=== PATIENT | male | born 1985 | race Caucasian/White ===

== ENCOUNTER 2018-08-27 13:23 | Emergency (ER) | payer OTHER ==
[2018-08-27 13:44] VITALS: BP 160/84
[2018-08-27 13:51] LABS: BASO % 0 % (0-3); EOS # 0.3 x10^3/uL (0.0-0.7); EOS % 7 % (0-3); HEMATOCRIT 44.8 % (39.0-53.0); HEMOGLOBIN 15.3 g/dL (13.0-17.5); LYMPH # 1.2 x10^3/uL (1.0-4.8); LYMPH % 25 % (24-48); MEAN CORPUSCULAR HEMOGLOBIN 30 pg (25-35); MEAN CORPUSCULAR HGB CONC 34 g/dL (31-37); MEAN CORPUSCULAR VOLUME 88 fL (79-100); MONO # 0.5 x10^3/uL (0.0-1.1); MONO % 10 % (0-9); NEUT # 2.9 x10^3uL (1.8-7.7); NEUT % 58 % (31-73); PLATELET COUNT 319 x10^3/uL (140-400); RED BLOOD COUNT 5.08 x10^6/uL (4.30-5.70); RED CELL DISTRIBUTION WIDTH 13.1 % (11.5-14.5)
[2018-08-27 14:11] LABS: ALBUMIN 4.4 g/dL (3.4-5.0); ALBUMIN/GLOBULIN RATIO 1.2 (1.0-1.7); CALCIUM 9.9 mg/dL (8.5-10.1); GFR 87.2; MAGNESIUM 2.1 mg/dL (1.8-2.4); POTASSIUM 4.2 mmol/L (3.5-5.1); TOTAL BILIRUBIN 0.5 mg/dL (0.2-1.0); TOTAL PROTEIN 8.2 g/dL (6.4-8.2)
--- NOTE | 2018-08-27 14:15 | PHYS DOC ---
Past History Past Medical History: No Pertinent History Past Surgical History: No Surgical History Alcohol Use: None Drug Use: None Adult General Chief Complaint Chief Complaint: CHEST PAIN [facility] HPI Patient is a 33 year old male who presents with complaining of chest pain. She complaining of constant left-sided chest aching pain in addition to his shoulder that getting worse with movement and activity and rated his pain 5-7/10. Patient complaining of mild shortness of breath without nausea, dizziness, focal neuro deficit, palpation, fever and chills. Patient states he had the same pain previously that last for one or 2 hours and today last more than 6 hours. Patient stated he does physical activity on daily basis and denies injury and increasing of physical activity. Review of Systems Review of Systems Constitutional: Denies fever or chills [] Eyes: Denies change in visual acuity, redness, or eye pain [] HENT: Denies nasal congestion or sore throat [] Respiratory: Denies cough, reports shortness of breath [] Cardiovascular: No additional information not addressed in HPI [] GI: Denies abdominal pain, nausea, vomiting, bloody stools or diarrhea [] : Denies dysuria or hematuria [] Musculoskeletal: Denies back pain or joint pain [] Integument: Denies rash or skin lesions [] Neurologic: Denies headache, focal weakness or sensory changes [] Endocrine: Denies polyuria or polydipsia [] All other systems were reviewed and found to be within normal limits, except as documented in this note. Allergies Allergies Allergies Coded Allergies Type Severity Reaction Last Updated Verified No Known Drug Allergies 08/27/18 No Physical Exam Physical Exam Constitutional: Well developed, well nourished, mild distress, non-toxic appearance. [] HENT: Normocephalic, atraumatic. [] Eyes: PERRLA, EOMI, conjunctiva normal, no discharge. [] Neck: Normal range of motion, no tenderness, supple, no stridor. [] Cardiovascular:Heart rate regular rhythm, no murmur [] Lungs & Thorax: Bilateral breath sounds clear to auscultation [] Abdomen: Bowel sounds normal, soft, no tenderness, no masses, no pulsatile masses. [] Skin: Warm, dry, no erythema, no rash. [] Back: No tenderness, no CVA tenderness. [] Extremities: No tenderness, no cyanosis, no clubbing, ROM intact, no edema. [] Neurologic: Alert and oriented X 3, normal motor function, normal sensory function, no focal deficits noted. [] Psychologic: Affect normal, judgement normal, mood normal. [] Current Patient Data Vital Signs Vital Signs Date Time Temp Pulse Resp B/P (MAP) Pulse Ox O2 Delivery O2 Flow Rate FiO2 08/27/18 13:44 67 18 98 Room Air EKG EKG EKG interpreted by me. EKG at 1331 showed normal sinus rhythm at rate of 63, no rmal when necessary QT intervals, no acute ST and T-wave abnormalities. Radiology/Procedures Radiology/Procedures [address] [address] IMAGING REPORT Signed PATIENT: NEHEMIAH SALDIVAR ACCOUNT: [id number] : 1985 LOCATION: ER AGE: 33 SEX: M EXAM STATUS: REG ER ORD. PHYSICIAN: ALINA MARINO MD REASON: chest pain PROCEDURE: CHEST PA & LATERAL CHEST PA LATERAL History: Chest pain. Comparison: None. Findings: The bilateral dann are prominent. The right paratracheal stripe is upper limits of normal. The cardiac size is normal. The lungs are clear. No pleural effusion or pneumothorax is seen. There is no acute bone abnormality. IMPRESSION: 1. Bilateral dann are prominent. Appearance may be due to vascular structures, but cannot exclude adenopathy. 2. The lungs are clear. Electronically signed by: Emmanuel Cannon MD (08/27/2018 2:10 PM) [id number] DICTATED AND SIGNED BY: EMMANUEL CANNON MD DATE: 08/27/18 1410 CC: ALINA MARINO MD; PCP,NO ~ Course & Med Decision Making Course & Med Decision Making Pertinent Labs and Imaging studies reviewed. (See chart for details) [] Dragon Disclaimer Dragon Disclaimer This electronic medical record was generated, in whole or in part, using a voice recognition dictation system. Departure Departure: Impression: Primary Impression: Rhabdomyolysis Additional Impression: Chest wall pain Disposition: 01 HOME, SELF-CARE (at 1513) Condition: IMPROVED Referrals: PCP,NAN (PCP) Patient Instructions: Chest Wall Pain, Rhabdomyolysis Additional Instructions: Drink plenty of liquids Follow-up with your primary care physician in 3-5 days Return to ER if not getting better Scripts Naproxen (NAPROSYN) 500 Mg Tablet 500 MG PO BID for pain, #20 TAB Prov: ALINA MARINO MD 08/27/18 Cyclobenzaprine Hcl (CYCLOBENZAPRINE HCL) 10 Mg Tablet 1 TAB PO TID for pain, #30 TAB Prov: ALINA MARINO MD 08/27/18 HEART Score for Chest Pain PTs The HEART Score for CP Pts HEART Score for Chest Pain: HEART Score for Chest Pain Response (Comments) Value History Slighlty/Non-Suspicious 0 ECG Nonspecific Repolarizatio 1 Age < 45 0 Risk Factors 1 or 2 Risk Factors 1 Troponin < Normal Limit 0 Total 2 Risk Factors: Risk Factors: DM, Current or recent (<one month) smoker, HTN, HLP, family history of CAD, obesity. Risk Scores: Score 0 - 3: 2.5% MACE over next 6 weeks - Discharge Home Score 4 - 6: 20.3% MACE over next 6 weeks - Admit for Clinical Observation Score 7 - 10: 72.7% MACE over next 6 weeks - Early Invasive Strategies Problem Qualifiers Primary Impression: Rhabdomyolysis Rhabdomyolysis type: non-traumatic Qualified Codes: M62.82 - Rhabdomyolysis ALINA MARINO MD Aug 27, 2018 14:15
[2018-08-27] MEDS ORDERED: IV NORMAL SALINE 1,000ML 1,000 ML IV ONE (14:30)
[2018-08-27] MEDS ORDERED: KETOROLAC 30 MG/ML VIAL. IV ONE (15:00)
[2018-08-27] MEDS ORDERED: NAPR-683 PO (15:14)
[2018-08-27] MEDS ORDERED: CYCL-331 PO (15:14)
--- NOTE | 2018-08-29 11:07 | EKG ---
[address] [address] Test Date: 2018-08-27 Test Time: 13:31:53 Pat Name: NEHEMIAH SALDIVAR Department: Room: Gender: M Taxation Agent: : 1985 Requested By: ALINA MARINO Order Number: [id number] Reading MD: Measurements Intervals [place] Rate: 63 P: 38 MT: 140 QRS: 6 QRSD: 94 T: 18 QT: 390 QTc: 402 Interpretive Statements SINUS RHYTHM QRS(T) CONTOUR ABNORMALITY CONSIDER ANTEROSEPTAL MYOCARDIAL DAMAGE POSSIBLY ABNORMAL ECG RI6.01 No previous ECG available for comparison
== END 2018-08-27 15:20 | disposition home or self-care (01) ==
LOC: ER 13:35
DX: M62.82 Rhabdomyolysis (principal); R07.89 Other chest pain
CPT/HCPCS: 36415; 71046; 80053; 82550; 83690; 83735; 83880; 84484; 85025; 85379; 93005; 96361; 96374; 99285; J1885; J7030